=== PATIENT | male | born 1960 | race Hispanic/Latino ===

== ENCOUNTER 2017-06-19 08:42 | Emergency (ER) | payer MEDICARE, MEDICAID ==
[2017-06-19 08:53] VITALS: BP 164/82; PULSE 85; RESP 20; TEMP 97.4; O2SAT 94
--- NOTE | 2017-06-19 09:28 | C.PDOC ---
Time Seen by Provider: 06/19/17 09:21 Chief Complaint (Nursing): Medical Clearance Past Medical History Reviewed: Historical Data, Nursing Documentation, Vital Signs Vital Signs: Last Vital Signs Temp 97.4 F L 06/19/17 08:52 Pulse 85 06/19/17 08:52 Resp 20 06/19/17 08:52 BP 164/82 H 06/19/17 08:52 Pulse Ox 94 L 06/19/17 09:28 - Medical History PMH: Hypercholesterolemia Family History: States: Unknown Family Hx - Social History Hx Alcohol Use: Yes Hx Substance Use: No - Immunization History Hx Tetanus Toxoid Vaccination: No Hx Influenza Vaccination: No Hx Pneumococcal Vaccination: No Review Of Systems Constitutional: Negative for: Fever, Chills Cardiovascular: Negative for: Chest Pain Respiratory: Negative for: Cough, Shortness of Breath Gastrointestinal: Positive for: Other (abdominal protrusion). Negative for: Nausea, Vomiting, Abdominal Pain, Diarrhea Skin: Negative for: Rash Physical Exam - Physical Exam Appears: Non-toxic, No Acute Distress Skin: Normal Color, Warm, Dry Head: Atraumatic, Normacephalic, Other (parotid enlargement bilaterally) Oral Mucosa: Moist Chest: Symmetrical Cardiovascular: Rhythm Regular, No Murmur Respiratory: Normal Breath Sounds, No Rales, No Rhonchi, No Wheezing Gastrointestinal/Abdominal: Soft, No Tenderness, No Guarding, No Rebound, Other (abdomen 12 cm epigastric abdominal diastasis, w/o herniation ) Back: Normal Inspection Extremity: Normal ROM, Capillary Refill (< 2 sec. 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 Follow-up with Dr. Jaramillo Instructions: Ventral Hernia (ED) Forms: [employer] (Montenegrin) - Clinical Impression Clinical Impression: Abdominal wall hernia - Scribe Statement The provider has reviewed the documentation as recorded by the Scribe SM All medical record entries made by the Scribe were at my direction and personally dictated by me. I have reviewed the chart and agree that the record accurately reflects my personal performance of the history, physical exam, medical decision making, and the department course for this patient. I have also personally directed, reviewed, and agree with the discharge instructions and disposition.
== END 2017-06-19 09:38 | disposition home or self-care (01) ==
LOC: C.ER 08:42
DX: K43.9 Ventral hernia without obstruction or gangrene (principal)

== ENCOUNTER 2018-03-28 07:53 | Emergency (ER) | payer MEDICARE, MEDICAID ==
[2018-03-28 08:14] VITALS: TEMP 98.3; BMI 30.8
--- NOTE | 2018-03-28 08:30 | C.PDOC ---
History Of Present Illness 57 year old male comes in for evaluation of right upper toothache, associated with gum swelling which had developed yesterday. Patient states he woke up today with facial swelling. Otherwise, pt denies any trauma, fever, chills, headache, dizziness, vertigo, earache, drooling, trismus, dyspnea, SOB, wheezing , denies any other active complaints. (Cynthia Ferris) History Per: Patient History/Exam Limitations: no limitations Onset/Duration Of Symptoms: Days Current Symptoms Are (Timing): Still Present Time Seen by Provider: 03/28/18 08:01 Chief Complaint (Nursing): Dental Pain Past Medical History Reviewed: Historical Data, Nursing Documentation, Vital Signs - Medical History PMH: Hypercholesterolemia Family History: States: No Known Family Hx - Social History Hx Alcohol Use: Yes Hx Substance Use: No - Immunization History Hx Tetanus Toxoid Vaccination: No Hx Influenza Vaccination: No Hx Pneumococcal Vaccination: No Vital Signs: Last Vital Signs Temp 98.3 F 03/28/18 08:05 Pulse 74 03/28/18 08:38 Resp 18 03/28/18 08:38 BP 151/87 H 03/28/18 08:38 Pulse Ox 20 L 03/28/18 08:55 Review Of Systems Except As Marked, All Systems Reviewed And Found Negative. Constitutional: Negative for: Fever, Chills ENT: Positive for: Other (Toothache) Respiratory: Negative for: Shortness of Breath Skin: Positive for: Other (Facial swelling) Neurological: Negative for: Weakness, Numbness, Other (dyspnea) Physical Exam - Physical Exam Appears: Well, Non-toxic, No Acute Distress Skin: Normal Color, Warm, Dry, No Rash Head: Normacephalic Eye(s): bilateral: PERRL Ear(s): Bilateral: Normal Nose: No Flaring, No Discharge Oral Mucosa: Moist, No Drooling, No Trismus Tongue: Normal Appearing Lips: Normal Appearing Teeth: Caries (#3), Tender To Palpation (#3) Gingiva: Erythema (diffuse around #3), Swelling, Tender, Abscess ([place] #3) Throat: No Erythema, No Exudate, No Drooling, Other (uvla midline, no edema.) Neck: Normal ROM, Trachea Midline, Supple Cardiovascular: Rhythm Regular Respiratory: No Decreased Breath Sounds, No Accessory Muscle Use, No Stridor, No Wheezing Extremity: Normal ROM, No Deformity, No Swelling Neurological/Psych: Oriented x3, Normal Speech ED Course And Treatment O2 Sat by Pulse Oximetry: 20 (RA) Pulse Ox Interpretation: Normal Progress Note: On re-eval, pt is afebrile, hemodynamicaly stable. NOn-toxic, tolerate PO well in ED. PulseOx. ENT: exam c/w #3 early abscess, (-) flactulance. Uvula midline, no edema, n drooling or trismus. Neck: Supple, (-) meningeal sign, (-) LDN. Lungs: CTA B/L, BS equal B/L. Pt advised on course of ds. ref. to F/u with Dentist in 1-2 dyas for re-eavl. return to ED if any worsening or new changes. Disposition Counseled Patient/Family Regarding: Diagnosis, Need For Followup, Rx Given - Disposition Disposition Time: 08:31 - Disposition Referrals: [facility] [Provider Group] [facility] [Provider Group] Disposition: HOME/ ROUTINE Condition: STABLE Additional Instructions: Warm salty water tooth bath 2-3 times daily for 5 minutes Take medication as prescribed Follow up with Dentist in 2-3 days for re-evaluation. Return to ED if any worsening or new changes. 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 - Scribe Statement The provider has reviewed the documentation as recorded by the Scribe - Scribe Statement Ashley Avalos All medical record entries made by the Scribe were at my direction and personally dictated by me. I have reviewed the chart and agree that the record accurately reflects my personal performance of the history, physical exam, medical decision making, and the department course for this patient. I have also personally directed, reviewed, and agree with the discharge instructions and disposition. (Cynthia Ferris)
[2018-03-28 08:38] VITALS: BP 151/87; PULSE 74; RESP 18
[2018-03-28 08:39] VITALS: O2SAT 20
== END 2018-03-28 09:17 | disposition home or self-care (01) ==
LOC: C.ER 07:53
DX: K04.7 Periapical abscess without sinus (principal)

== ENCOUNTER 2018-05-10 10:07 | Emergency (ER) | payer MEDICARE, MEDICAID ==
[2018-05-10 10:08] VITALS: BMI 30.8
[2018-05-10] MEDS ORDERED: Iohexol 240 (50 ml) PO STA (11:31)
--- NOTE | 2018-05-10 11:36 | C.PDOC ---
History Of Present Illness 58 year old male, whose PMHx includes high cholesterol, presents to the ED for evaluation of lower abdominal pain. Patient states he took a Cologuard test, which was positive for colon cancer. Patient is scheduled for his first colon scopy next month. He denies fever, chills, nausea, vomiting, or changes in bowel habits. PMD: Vern Haas Time Seen by Provider: 05/10/18 10:31 Chief Complaint (Nursing): Abdominal Pain History Per: Patient History/Exam Limitations: no limitations Onset/Duration Of Symptoms: Days Current Symptoms Are (Timing): Still Present Location Of Pain/Discomfort: LLQ Radiation Of Pain To:: None Quality Of Discomfort: "Pain" Associated Symptoms: denies: Fever, Chills, Nausea, Vomiting, Diarrhea, Constipation Additional History Per: Patient Past Medical History Reviewed: Historical Data, Nursing Documentation, Vital Signs Vital Signs: Last Vital Signs Temp 98.4 F 05/10/18 10:20 Pulse 95 H 05/10/18 10:20 Resp 18 05/10/18 10:20 BP 154/92 H 05/10/18 10:20 Pulse Ox 96 05/10/18 10:20 - Medical History PMH: Hypercholesterolemia Surgical History: No Surg Hx Family History: States: Unknown Family Hx - Social History Hx Alcohol Use: Yes Hx Substance Use: No - Immunization History Hx Tetanus Toxoid Vaccination: No Hx Influenza Vaccination: No Hx Pneumococcal Vaccination: No Review Of Systems Constitutional: Negative for: Fever, Chills Gastrointestinal: Positive for: Abdominal Pain (left lower quadrant ). Negative for: Nausea, Vomiting, Diarrhea, Constipation Physical Exam - Physical Exam Appears: Non-toxic, No Acute Distress Skin: Normal Color, Warm, Dry Head: Atraumatic, Normacephalic Eye(s): bilateral: Normal Inspection Oral Mucosa: Moist Neck: Supple Chest: Symmetrical, No Deformity, No Tenderness Cardiovascular: Rhythm Regular, No Murmur Respiratory: Normal Breath Sounds, No Rales, No Rhonchi, No Wheezing Gastrointestinal/Abdominal: Soft, Tenderness (left lower quadrant ), Guarding, N o Rebound Extremity: Normal ROM, Capillary Refill (less than 2 seconds ) Neurological/Psych: Oriented x3, Normal Speech, Normal Cognition ED Course And Treatment - Laboratory Results Result Diagrams: 05/10/18 11:49 10/29/18 11:49 O2 Sat by Pulse Oximetry: 96 (on RA) Pulse Ox Interpretation: Normal - CT Scan/US CT A/P Other Rad Studies (CT/US): Read By Radiologist, Radiology Report Reviewed CT/US Interpretation: Date of service: 05/10/2018. PROCEDURE: CT Abdomen and Pelvis with contrast. HISTORY: LLQ abd pain, positive Cologuard. COMPARISON: None. TECHNIQUE: Contrast dose: 100 mL Visipaque 320. Radiation dose: Total exam DLP = 1452.07 mGy-cm. This CT exam was performed using one or more of the following dose reduction techniques: Automated exposure control, adjustment of the mA and/or kV according to patient size, and/or use of iterative reconstruction technique. FINDINGS: LOWER THORAX: Unremarkable. LIVER: Diffuse hepatic steatosis. No gross lesion or ductal dilatation. GALLBLADDER AND BILE DUCTS: Unremarkable. PANCREAS: Unremarkable. No gross lesion or ductal dilatation. SPLEEN: Unremarkable. ADRENALS: Unremarkable. No mass. KIDNEYS AND URETERS: Unremarkable. No hydronephrosis. No solid mass. VASCULA TURE: Unremarkable. No aortic aneurysm. No aortic atherosclerotic calcification or mural plaque present. BOWEL: Unremarkable. No obstruction. No gross mural thickening. APPENDIX: Normal appendix. PERITONEUM: Anterior abdominal wall 3.8 x 2.0 cm fluid collection. Small fat containing left inguinal hernia. No free fluid. No free air. LYMPH NODES: Unremarkable. No enlarged lymph nodes. BLADDER: Unremarkable. REPRODUCTIVE: Unremarkable. BONES: No acute fracture. OTHER FINDINGS: None. IMPRESSION: No acute abdominal pelvic pathology. No obvious area of colonic wall thickening. Redemonstration of anterior abdominal wall subcutaneous fluid collection measuring 3.8 x 2.0 cm. D ifficult to determine whether this has increased in size as this was only partially imaged on previous CT lung screening examination performed on 05/14/2017. Progress Note: Bloodwork, urinalysis, CT A/P ordered and reviewed. Disposition - Disposition Disposition: HOME/ ROUTINE Disposition Time: 14:58 Condition: STABLE Additional Instructions: follow up with your PMD and Machine Taper within 1-2 days. Return to ED if feel worse. 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 - Scribe Statement The provider has reviewed the documentation as recorded by the Scribe (Radha Smart) All medical record entries made by the Scribe were at my direction and personally dictated by me. I have reviewed the chart and agree that the record accurately reflects my personal performance of the history, physical exam, medical decision making, and the department course for this patient. I have also personally directed, reviewed, and agree with the discharge instructions and disposition.
[2018-05-10] MEDS ORDERED: Iohexol 240 (50 ml) ONE (11:43)
[2018-05-10 11:52] LABS: BASO # 0.1 K/uL (0.0-0.2); BASO % 0.9 % (0.0-2.0); EOS # 0.2 K/uL (0.0-0.7); EOS % 2.4 % (0.0-4.0); HEMOGLOBIN 14.7 g/dL (12.0-18.0); LYMPH # 2.8 K/uL (1.0-4.3); LYMPH % 29.8 % (20.0-40.0); MEAN CORPUSCULAR HEMOGLOBIN 30.7 pg (27.0-31.0); MEAN CORPUSCULAR HGB CONC 34.3 g/dL (33.0-37.0); MONO # 0.9 K/uL (0.0-0.8); MONO % 9.7 % (0.0-10.0); NEUT # 5.4 K/uL (1.8-7.0); NEUT % 57.2 % (50.0-75.0); RBC 4.8 Mil/uL (4.40-5.90); RED CELL DISTRIBUTION WIDTH 14.2 % (11.5-14.5); WHITE BLOOD COUNT 9.4 K/uL (4.8-10.8)
[2018-05-10 11:53] LABS: MEAN CELL VOLUME 89.5 fL (80.0-94.0)
[2018-05-10 12:00] LABS: INR 1.1; PROTHROMBIN TIME 11.7 SECONDS (9.7-12.2)
[2018-05-10 12:09] LABS: SQUAMOUS EPITHIAL 1 /hpf (0-5); URINE BILIRUBIN NEGATIVE (NEGATIVE); URINE BLOOD NEGATIVE (NEGATIVE); URINE CLARITY Clear (Clear); URINE COLOR Yellow (YELLOW); URINE GLUCOSE (UA) NORMAL (Normal); URINE LEUKOCYTE ESTERASE NEG Leu/uL (Negative); URINE PROTEIN NEGATIVE (NEGATIVE)
[2018-05-10 12:20] LABS: ALB/GLOB RATIO 1.6 (1.0-2.1); ALBUMIN 4.4 g/dL (3.5-5.0); ALT/SGPT 40 U/L (21-72); AST/SGOT 23 U/L (17-59); BLOOD UREA NITROGEN 13 mg/dL (9-20); CALCIUM 9.1 mg/dl (8.6-10.4); GFR NON-AFRICAN AMERICAN > 60; LIPASE 69 U/L (23-300)
[2018-05-10 12:47] VITALS: BP 143/83; PULSE 71; RESP 19; TEMP 98.2
[2018-05-10] MEDS ORDERED: Iodixanol 320 MG/ML 100 ML BOTTLE IV ONE (12:58)
--- NOTE | 2018-05-10 13:42 | CT ---
Date of service: 05/10/2018 PROCEDURE: CT Abdomen and Pelvis with contrast HISTORY: LLQ abd pain, positive Cologuard COMPARISON: None. TECHNIQUE: Contrast dose: 100 mL Visipaque 320 Radiation dose: Total exam DLP = 1452.07 mGy-cm. This CT exam was performed using one or more of the following dose reduction techniques: Automated exposure control, adjustment of the mA and/or kV according to patient size, and/or use of iterative reconstruction technique. FINDINGS: LOWER THORAX: Unremarkable. LIVER: Diffuse hepatic steatosis. No gross lesion or ductal dilatation. GALLBLADDER AND BILE DUCTS: Unremarkable. PANCREAS: Unremarkable. No gross lesion or ductal dilatation. SPLEEN: Unremarkable. ADRENALS: Unremarkable. No mass. KIDNEYS AND URETERS: Unremarkable. No hydronephrosis. No solid mass. VASCULATURE: Unremarkable. No aortic aneurysm. No aortic atherosclerotic calcification or mural plaque present. BOWEL: Unremarkable. No obstruction. No gross mural thickening. APPENDIX: Normal appendix. PERITONEUM: Anterior abdominal wall 3.8 x 2.0 cm fluid collection. Small fat containing left inguinal hernia. No free fluid. No free air. LYMPH NODES: Unremarkable. No enlarged lymph nodes. BLADDER: Unremarkable. REPRODUCTIVE: Unremarkable. BONES: No acute fracture. OTHER FINDINGS: None. IMPRESSION: No acute abdominal pelvic pathology. No obvious area of colonic wall thickening. Redemonstration of anterior abdominal wall subcutaneous fluid collection measuring 3.8 x 2.0 cm. Difficult to determine whether this has increased in size as this was only partially imaged on previous CT lung screening examination performed on 05/14/2017.
[2018-05-10 14:03] VITALS: O2SAT 96
== END 2018-05-10 15:28 | disposition home or self-care (01) ==
LOC: C.ER 10:07
DX: R10.32 Left lower quadrant pain (principal)
CPT/HCPCS: 74177; 80053; 81001; 83690; 85025; 85610; 85730; 99285; Q9966; Q9967

== ENCOUNTER 2018-07-15 09:48 | Day surgery (SDC) | payer MEDICARE, MEDICAID | END 2018-07-15 10:30 | disposition left against medical advice (07) | LOC: C.ENDO 09:48 | PROVIDERS: ATTEND Internal Medicine Gastroenterology | DX: Z53.8 Procedure and treatment not carried out for other reasons (principal); R19.5 Other fecal abnormalities ==

== ENCOUNTER 2018-08-05 11:29 | Outpatient (CLI) | payer MEDICARE, MEDICAID | END 2018-08-05 11:30 | disposition home or self-care (01) | LOC: C.CTH 11:29 | DX: Z12.2 Encounter for screening for malignant neoplasm of respiratory organs (principal) ==